=== PATIENT | male | born 1935 | race Caucasian/White ===

== ENCOUNTER 2016-11-16 14:31 | Emergency (ER) | payer OTHER ==
[~2016-11-16] VITALS: Ht 188 cm; Wt 79.4 kg
--- NOTE | ~2016-11-16 | EKG ---
[place] [address] [employer] [place] [address] ELECTROCARDIOGRAM REPORT Name: ELEANOR TUCKER [id number] Admission: 11/16/16 Attend Phys: Discharge: 11/16/16 Date of : 31 Report #: [id number] THIS REPORT FOR: //name// [facility] ED Test Date: 2016-11-16 Test Time: 14:40:36 Pat Name: ELEANOR TUCKER Department: Room: Gender: Food Beverage Manager: GILMA : 1935 Requested By: Jonn Tellez Order Number: [id number] MD: Abdirahman Berry Measurements Intervals [place] Rate: 62 P: AR: QRS: -87 QRSD: 143 T: 27 QT: 426 QTc: 433 Interpretive Statements Sinus rhythm with first-degree AV block Nonspecific IVCD with LAD Compared to ECG 09/19/2013 07:31:09 no significant change was found Electronically Signed On 11-19-2016 11:59:36 CDT by Abdirahman Berry [email or web address] <ELECTRONICALLY SIGNED> By: Abdirahman Berry MD, [facility] 11/19/16 1159 1440 1440 Abdirahman Berry MD, [facility] /EPI
[~2016-11-16 14:31] MED LIST: ALTACE5 M1 PO; FINASTERIDE5 MG PO; FLOMAX PO; FLOMAX0.4 MG PO; HYTRIN 5 M5 MG/1 CAP PO; HYTRIN10 MG PO; KEFLEX250 MG PO; LOVASTAT40 PO; NAPROSYN375 MG PO; NEXIUM40 MG PO; NORCO 5-325 TA1 EACH PO; PRAVACHOL40 MG PO
[2016-11-16 14:59] LABS: ABSOLUTE NEUTROPHILS 3.4 thou/uL (1.4-8.2); BASOPHILS 0.6 % (0.0-2.0); EOSINOPHILS 6.2 % (0.0-3.0); HEMATOCRIT 41.1 % (42.0-52.0); HEMOGLOBIN 13.9 gm/dL (14.0-18.0); LYMPHOCYTES 21.8 % (24.0-44.0); MCH 32.4 pg (26.0-34.0); MCHC 33.9 g/dL (28.0-37.0); MCV 95.4 fL (80.0-100.0); MONOCYTES 10.2 % (1.0-8.0); PLATELET COUNT 134 thou/uL (150-400); POLYS 61.2 % (36.0-66.0); RBC 4.31 mil/uL (4.50-6.00); RDW 13.3 % (10.5-14.5); WBC 5.5 thou/uL (4.0-11.0)
[2016-11-16] MEDS ORDERED: OMEPRAZOLE40 MG PO (15:03)
[2016-11-16 15:16] LABS: ANION GAP 9 mmol/L (7-16); BUN 20 mg/dL (7-18); CHLORIDE 106 mmol/L (98-107); CO2 28 mmol/L (21-32); CREATININE 0.9 mg/dL (0.7-1.3); GLUCOSE 121 mg/dL (74-106); POTASSIUM 4.2 mmol/L (3.5-5.1); SODIUM 143 mmol/L (136-145)
[2016-11-16 15:17] LABS: MANUAL DIFF NO
[2016-11-16 15:24] LABS: TROPONIN-I < 0.04 ng/mL (<0.04-0.07)
[2016-11-16 17:53] VITALS: BP 141/75
== END 2016-11-16 17:11 | disposition home or self-care (01) ==
LOC: ER 14:31
PROVIDERS: Emergency Medicine
DX: R07.9 Chest pain, unspecified (principal); N40.0 Benign prostatic hyperplasia without lower urinary tract symptoms; K21.9 Gastro-esophageal reflux disease without esophagitis; J45.909 Unspecified asthma, uncomplicated; F10.99 Alcohol use, unspecified with unspecified alcohol-induced disorder; Z96.651 Presence of right artificial knee joint; Z98.890 Other specified postprocedural states; Z95.5 Presence of coronary angioplasty implant and graft; Z95.0 Presence of cardiac pacemaker

== ENCOUNTER 2017-04-17 10:54 | Emergency (ER) | payer OTHER ==
[~2017-04-17] VITALS: Ht 188 cm; Wt 79.4 kg
[~2017-04-17 10:54] MED LIST changes: +OMEPRAZOLE40 MG PO
[2017-04-17] MEDS ORDERED: KEFLEX500 M1 PO (12:34)
[2017-04-17 12:50] VITALS: BP 151/69
== END 2017-04-17 12:51 | disposition home or self-care (01) ==
LOC: ER 10:54
DX: S61.012A Laceration without foreign body of left thumb without damage to nail, initial encounter (principal); N40.0 Benign prostatic hyperplasia without lower urinary tract symptoms; K21.9 Gastro-esophageal reflux disease without esophagitis; F10.99 Alcohol use, unspecified with unspecified alcohol-induced disorder; J45.909 Unspecified asthma, uncomplicated; Z23 Encounter for immunization; Z96.641 Presence of right artificial hip joint; W29.8XXA Contact with other powered hand tools and household machinery, initial encounter; Y93.89 Activity, other specified; Y92.89 Other specified places as the place of occurrence of the external cause; Y99.8 Other external cause status

== ENCOUNTER → 2019-07-12 | Outpatient (CLI) | payer OTHER ==
[~2019-07-12] MED LIST changes: +KEFLEX500 M1 PO
== END ==
LOC: SJCVC 09:14
DX: Z45.018 Encounter for adjustment and management of other part of cardiac pacemaker (principal); R00.1 Bradycardia, unspecified; I25.10 Atherosclerotic heart disease of native coronary artery without angina pectoris; J44.9 Chronic obstructive pulmonary disease, unspecified; I65.23 Occlusion and stenosis of bilateral carotid arteries; I10 Essential (primary) hypertension; E78.5 Hyperlipidemia, unspecified; Z79.899 Other long term (current) drug therapy

== ENCOUNTER → 2020-01-13 | Outpatient (CLI) | payer OTHER | LOC: SJCVCIMAG 08:39 | PROVIDERS: ATTEND Internal Medicine Cardiovascular Disease | DX: Z45.018 Encounter for adjustment and management of other part of cardiac pacemaker (principal); I08.2 Rheumatic disorders of both aortic and tricuspid valves; R00.1 Bradycardia, unspecified; I25.10 Atherosclerotic heart disease of native coronary artery without angina pectoris; I45.2 Bifascicular block; R94.31 Abnormal electrocardiogram [ECG] [EKG] ==

== ENCOUNTER → 2020-01-17 | Outpatient (CLI) | payer OTHER | LOC: SJCVCIMAG 06:55 | PROVIDERS: ATTEND Internal Medicine Cardiovascular Disease | DX: I25.10 Atherosclerotic heart disease of native coronary artery without angina pectoris (principal); E78.5 Hyperlipidemia, unspecified; J44.9 Chronic obstructive pulmonary disease, unspecified; Z95.0 Presence of cardiac pacemaker ==

== ENCOUNTER → 2020-10-14 | Outpatient (CLI) | payer OTHER | LOC: SJCVC 12:41 | PROVIDERS: ATTEND Internal Medicine Cardiovascular Disease | DX: I25.10 Atherosclerotic heart disease of native coronary artery without angina pectoris (principal); I49.5 Sick sinus syndrome; I65.23 Occlusion and stenosis of bilateral carotid arteries; I10 Essential (primary) hypertension; E78.00 Pure hypercholesterolemia, unspecified; E78.5 Hyperlipidemia, unspecified; M19.90 Unspecified osteoarthritis, unspecified site; N40.0 Benign prostatic hyperplasia without lower urinary tract symptoms; Z79.899 Other long term (current) drug therapy; Z87.891 Personal history of nicotine dependence; Z72.89 Other problems related to lifestyle; Z82.49 Family history of ischemic heart disease and other diseases of the circulatory system ==

== ENCOUNTER 2020-12-03 12:16 | Observation (INO) | payer OTHER ==
[~2020-12-03] VITALS: Ht 182.9 cm; Wt 68.0 kg
--- NOTE | ~2020-12-03 | D ---
[facility] [place] [address] DISCHARGE SUMMARY Name: ELEANOR TUCKER Room #: 203-P [facility] M.R.#: [id number] Admission: 12/03/20 Attend Phys: Fox Pisano MD, Discharge: Date of : 31 Report #: [id number] THIS REPORT FOR: cc: Juan Silver MD, Christopher B. MD Mancuso, Gerald M. MD [facility] ~ DOC #: [id number] Fox Pisano MD HOSPITAL COURSE: The patient is an 85-year-old male who was admitted with some recurrent chest pain and pressure issues consistent with his prior angina. He had an LAD stent placed in 2001. This was a bare metal stent. A mild ischemic cardiomyopathy, hypertension, hypercholesterolemia. He has otherwise been doing well, but has been having some progressive fatigue and shortness of breath and decreased exercise tolerance. Intermittently, the chest pain would occur. He subsequently was ruled out, went to the catheterization lab, which revealed a 50% LAD after the stent that was placed 20 years ago, mild circ and RCA disease and a mild ischemic cardiomyopathy. Some mildly dilated aortic root. His abdominal aorta is mildly ectatic, but not aneurysmal. No indication for coronary intervention. Chest x-ray has been ordered. They are looking for a new primary care physician on campus. They are going to see Dr. Oshea who they saw years ago, the states in followup. LABORATORY WORK: Potassium was 4.4, creatinine was 0.9. GFR was 80. H and H was 13 and 39. Troponin was negative. Chest x-ray is ordered. No lifting for 48 hours. No lying in tub, jacuzzi or joyce for 5 days. Follow up with Dr. Oshea. I will see the patient back in August for an office visit. Does not appear to be cardiac, although some of his symptomatology may need further workup. He denies fever or night sweats. DISCHARGE DIAGNOSES: 1. Chest pain, appears noncardiac. Moderate 3-vessel coronary disease as described above. 2. Hypertension. 3. Hypercholesterolemia. 4. Degenerative joint disease. RECOMMENDATIONS AND PLAN: We will review the chest x-ray prior to discharge. Follow up as noted above. Fox Pisano MD [facility]/[address] [address] DISCHARGE SUMMARY Name: ELEANOR TUCKER Room #: 203-P [facility] Catrachito Jasso#: [id number] Admission: 12/03/20 Attend Phys: Fox Pisano MD, Discharge: Date of : 31 Report #: [id number] By: 0834 0856 Fox Pisano MD, FACC /nt
[2020-12-03 13:45] LABS: HEMATOCRIT 39.5 % (42.0-52.0); MCH 32.2 pg (26.0-34.0); MCHC 32.9 g/dL (28.0-37.0); MCV 97.9 fL (80.0-100.0); RBC 4.03 mil/uL (4.50-6.00); RDW 13.1 % (10.5-14.5); WBC 5.7 thou/uL (4.0-11.0)
[2020-12-03 13:57] LABS: CALCIUM 8.6 mg/dL (8.5-10.1); CREATININE 0.9 mg/dL (0.7-1.3); POTASSIUM 4.4 mmol/L (3.5-5.1)
[2020-12-03] MEDS ORDERED: ASA81BEC PO (14:31)
[2020-12-03 14:56] VITALS: BP 137/67
[2020-12-03 17:37] VITALS: BP 155/93
[2020-12-03 19:35] VITALS: BP 124/70
[2020-12-04] VITALS (7 sets, daily range): BP systolic 114–148; BP diastolic 55–83
--- NOTE | 2020-12-04 15:28 | CATHLAB ---
[facility] [place] [address] INVASIVE PROCEDURE REPORT Name: ELEANOR TUCKER Room #: 203-P [facility] Jasso#: [id number] Admission: 12/03/20 Attend Phys: Fox Pisano MD, Discharge: 12/04/20 Date of : 31 Report #: [id number] THIS REPORT FOR: cc: Juan Silver MD, Christopher B. MD Mancuso, Gerald M. MD [facility] ~ APPROVED REPORT Study performed: 12/04/2020 07:46:54 Patient Details Patient Status: In-Patient Room #: 203 The patient is a 85 year-old male Event Personnel Fox Pisano Chief Of Staff Doctor, Misti Olsen RTR, NIKKI ScrEnder jones Jordan RTR Monitor, Alejandra Marsh RN appliance technician Performed Art Access - R femoral artery* Left Heart Cath w/or w/o Coronaries [id number] [facility] [address] Initial Mod Sed Same Phys/QHP Gr5y 740275 03260 Mod Sed Same Phys/QHP Ea 626543 Hemostasis w/ Mynx Abdominal Aortography 501015 Indication Chest pain Risk Factors Coronary Artery Disease Previous Procedures/Diagnoses Previous PCI Procedure Narrative The Right Groin^ was infiltrated with 1% Lidocaine subcutaneous anesthesia. A PINNACLE 6FR Sheath #[id number] sheath was inserted into the RFA^. Coronary angiography was performed using coronary diagnostic catheters. The right coronary system was accessed and visualized with a JR4 catheter. The left coronary system was accessed and visualized with a JL5 catheter. The left ventricle was accessed and visualized with a PIGTAIL catheter. An aortogram of the abdominal aorta was performed. Closure device was deployed with a 6 Fr 6FR MYNXGRIP. Hemostasis was obtained with manual pressure following [facility] [address] [place] [address] INVASIVE PROCEDURE REPORT Name: ELEANOR TUCKER Room #: 203-P [facility] ..#: [id number] Admission: 12/03/20 Attend Phys: Fox Pisano, Discharge: 12/04/20 Date of : 31 Report #: [id number] sheath removal without any complications. The patient tolerated the procedure well and there were no complications associated with the procedure. There was no hematoma. Intraoperative Conscious Sedation Sedation start time: 818 Case end Time: 08 Fentanyl 50 mcg Versed 1 mg Fluoro Time: 2.10 minutes Dose: DAP 4858.10 cGycm2 595 mGy Contrast Type and Amount: Omnipaque 115 ml Hemodynamics The aortic pressure is 167/70 mmHg with a mean of 107 mmHg. The left ventricular pressure is 166/11 mmHg with a mean of mmHg. The left ventricular end diastolic pressure is 16 mmHg. Conclusion #1 Normal left ventricular size systolic function lower limits of normal with anterior apical hypokinesis. #2 abdominal aortogram mild aortic ectasia no evidence of aneurysm brisk distal flow is noted. #3 left main large free of disease giving rise to LAD and circumflex. #4 LAD has a proximal stent which is mild in-stent restenosis followed by an eccentric 60% lesion otherwise well-preserved vessel distal calcified extending around the apex. We will follow this moderate 60% narrowing. #5 circumflex OM nondominant with 4050% proximal stenosis and mild distal disease #6 dominant right coronary artery proximal calcification mid vessel lesion 5060% preserved PDA JANI no occlusive disease. Recommendations and plan: Continue aggressive risk factor modification no indication for coronary intervention we will follow this LAD lesion. <ELECTRONICALLY SIGNED> By: Fox Pisano MD, FACC 12/04/20 1527 1527 1527 Fox Pisano MD, FACC /INF
== END 2020-12-04 14:50 | disposition home or self-care (01) ==
LOC: CATH 12:16 → SJCVC 12:16 → 2N 17:45
PROVIDERS: ADMIT Internal Medicine Cardiovascular Disease; ATTEND Internal Medicine Cardiovascular Disease
DX: I25.10 Atherosclerotic heart disease of native coronary artery without angina pectoris (principal); R07.89 Other chest pain; R53.83 Other fatigue; I49.5 Sick sinus syndrome; I10 Essential (primary) hypertension; E78.00 Pure hypercholesterolemia, unspecified; I65.23 Occlusion and stenosis of bilateral carotid arteries; Z95.0 Presence of cardiac pacemaker

== ENCOUNTER → 2020-12-08 | Outpatient (CLI) | payer OTHER ==
[~2020-12-08] MED LIST changes: +ASA81BEC PO
== END ==
LOC: SJCVCIMAG 06:21
PROVIDERS: ATTEND Internal Medicine Cardiovascular Disease
DX: I08.8 Other rheumatic multiple valve diseases (principal); R07.89 Other chest pain; R06.00 Dyspnea, unspecified; E78.5 Hyperlipidemia, unspecified; I10 Essential (primary) hypertension; G89.29 Other chronic pain; Z87.891 Personal history of nicotine dependence; Z95.2 Presence of prosthetic heart valve; Z79.899 Other long term (current) drug therapy; Z98.61 Coronary angioplasty status; Z95.0 Presence of cardiac pacemaker

== ENCOUNTER → 2021-01-08 | Outpatient (CLI) | payer OTHER ==
[~2021-01-08] VITALS: Ht 188 cm; Wt 70.3 kg
[~2021-01-08] MED LIST changes: +SYMBICORT160 MCG/4. INH
--- NOTE | ~2021-01-08 | P ---
[facility] [place] [address] PROCEDURE REPORT Name: ELEANOR TUCKER Room #: REG [facility] Mary.#: [id number] Admission: 01/08/21 Attend Phys: Edil Funes Discharge: Date of : 31 Report #: [id number] THIS REPORT FOR: cc: Rafael Hilliard MD, Eric K. MD McElhinney, Christian C. MD ~ cc: Rafael Hilliard MD DATE OF SERVICE: 01/08/2021 PROCEDURE PERFORMED: Upper endoscopy with biopsies and esophageal dilation. HISTORY OF PRESENT ILLNESS: The patient is an 85-year-old male with recurrent dysphagia. He has undergone previous upper endoscopy with dilation, which was beneficial. A known Schatzki's ring. He is on omeprazole daily. He denies any heartburn symptoms. He has had weight loss of approximately 20 pounds over the last 6-8 months. Denies any abdominal pain. Apparently has had a CT scan of the abdomen and pelvis that was negative. I do not have a copy of these results. Plan is for upper endoscopy. DESCRIPTION OF PROCEDURE: The risks and benefits of the procedure were explained to the patient, those risks including but not limited to bleeding, perforation and the risk of sedation. He understood these risks and gave informed consent. Sedation was given using propofol per anesthesia. Next, using a standard Olympus upper endoscope, the scope was placed in the patient's mouth and advanced under direct vision through the esophagus, stomach and into the second portion of the duodenum. The larynx was normal in appearance. The upper and mid esophagus was normal. In the distal esophagus, a mild Schatzki's ring was noted. No evidence of esophagitis. Upon entering the stomach, a small hiatal hernia was noted. There was a mild to moderate gastritis noted in the gastric body and antrum. Biopsies were obtained to rule out H. pylori. The pylorus was normal and patent. The duodenal bulb, first and second portion were all normal. The scope was then brought back up into the patient's stomach and a Savary guidewire was inserted through the scope, leaving the guidewire in place as the scope was then withdrawn. Next, a 48-Kittitian followed by 51-Kittitian Savary dilation of the esophagus were performed without difficulty. The wire and dilator removed. The scope was reintroduced into the patient's stomach. There was no evidence of mucosal tear after dilation. The scope was then withdrawn and the procedure terminated. The patient tolerated the procedure well. IMPRESSION: 1. Mild Schatzki's ring, status post dilation. 2. Small hiatal hernia. 3. Gastritis. 4. Otherwise, normal upper endoscopy. [address] [address] PROCEDURE REPORT Name: ELEANOR TUCKER Room #: REG [facility]EL Jasso#: [id number] Admission: 01/08/21 Attend Phys: Edil Funes Discharge: Date of : 31 Report #: [id number] RECOMMENDATIONS: 1. Await biopsy results. 2. Continue PPI therapy. 3. Observe the patient post-dilation. Thank you for allowing me to participate in his care. By: 0743 1106 Edil Jacobson MD /nt
--- NOTE | 2021-01-11 17:06 | PATH ---
[facility] [address] [place] [address] PATHOLOGY RPT PROCEDURE Name: ELEANOR SANTORO Room #: REG [facility] MJenniferR.#: [id number] Admission: 01/08/21 Date of : 31 Discharge: Report #: [id number] Path Case #: [id number] [facility] Accession Number: [id number] . 01 Material submitted: . gastrointestinal site - GASTRIC BIOPSY R/O GASTRITIS . 01 Clinical history: . EGD DYSPHAGIA/GASTRITIS . 02 Diagnosis: Gastric mucosa, gastritis, rule out H. pylori, endoscopic biopsy: - Mild reactive gastropathy. - Negative for intestinal metaplasia or atrophy. - Negative for Helicobacter pylori (properly-controlled immunohistochemical stain performed). . (IUV:mml; 01/11/2021) QLM 01/11/2021 1106 Local . 02 Electronically signed: . Carla Hernandez MD, Pathologist NPI- [id number] . 01 Gross description: . The specimen is received in formalin, labeled "Eleanor Santoro, gastric biopsy". Received are four segments of pale alfonso tissue ranging in size from 0.3-0.5 cm in maximum dimensions. The specimen is submitted entirely in cassette A1. (CAA; 01/08/2021) QAC/QAC 01/08/2021 1632 Local . 02 Pathologist provided ICD-10: K31.9 . 02 CPT . 754563, P72162 Specimen Comment: A courtesy copy of this report has been sent to [phone], [phone] Specimen Comment: [phone] Specimen Comment: Report sent to / DR GODOY Specimen Comment: Report sent to Performed at: 01 [facility] [address] [id number] MD Hubert Venegas MD Phone: [phone] [address] [address] PATHOLOGY RPT PROCEDURE Name: ELEANOR SANTORO [facility] [id number] Admission: 01/08/21 Date of : 31 Discharge: Report #: [id number] Path Case #: [id number] Performed at: [address] [id number] MD Carla Hernandez MD Phone: [phone]
== END | disposition home or self-care (01) ==
LOC: GI 06:51
PROVIDERS: ATTEND Specialist
DX: R13.10 Dysphagia, unspecified (principal); K22.2 Esophageal obstruction; K31.9 Disease of stomach and duodenum, unspecified; K44.9 Diaphragmatic hernia without obstruction or gangrene; I25.10 Atherosclerotic heart disease of native coronary artery without angina pectoris; J45.909 Unspecified asthma, uncomplicated; E78.00 Pure hypercholesterolemia, unspecified; N40.0 Benign prostatic hyperplasia without lower urinary tract symptoms; K21.9 Gastro-esophageal reflux disease without esophagitis; Z98.890 Other specified postprocedural states; Z79.899 Other long term (current) drug therapy; Z96.653 Presence of artificial knee joint, bilateral; Z87.891 Personal history of nicotine dependence; Z95.0 Presence of cardiac pacemaker; Z20.822 Contact with and (suspected) exposure to COVID-19
CPT/HCPCS: 62110; 62900

== ENCOUNTER → 2021-07-15 | Outpatient (CLI) | payer OTHER | LOC: SJCVC 08:50 | PROVIDERS: ATTEND Internal Medicine Cardiovascular Disease | DX: I25.10 Atherosclerotic heart disease of native coronary artery without angina pectoris (principal); E78.00 Pure hypercholesterolemia, unspecified; I49.5 Sick sinus syndrome; I65.23 Occlusion and stenosis of bilateral carotid arteries; Z95.0 Presence of cardiac pacemaker; E78.5 Hyperlipidemia, unspecified; M19.90 Unspecified osteoarthritis, unspecified site; Z87.891 Personal history of nicotine dependence; Z72.89 Other problems related to lifestyle; Z79.899 Other long term (current) drug therapy; Z82.49 Family history of ischemic heart disease and other diseases of the circulatory system; Z88.6 Allergy status to analgesic agent ==